=== PATIENT | male | born 1960 | race Caucasian/White ===

== ENCOUNTER → 2020-08-13 | Outpatient (CLI) | payer MEDICARE, BC ==
--- NOTE | 2020-08-13 11:05 | US ---
EXAMINATION TYPE: US abdomen complete DATE OF EXAM: 08/13/2020 COMPARISON: NONE CLINICAL HISTORY: 59-year-old male R10.9 abd pain,R10.13 epigastric pain. TECHNIQUE: Multiple sonographic images of the abdomen are obtained. FINDINGS: EXAM MEASUREMENTS: Liver Length: 10.6 cm Gallbladder Wall: 0.1 cm CBD: 7.5 mm Spleen: 10.2 cm Right Kidney: 10.5 x 5.3 x 5.0 cm Left Kidney: 10.1 x 4.9 x 5.2 cm Pancreas: Obscured by bowel gas Liver: wnl Gallbladder: wnl Evidence for sonographic Lo's sign: no CBD: Mildly dilated. Spleen: wnl Right Kidney: Bridge Saw Operator notes: medial superior shows an area that has a mass like effect. Unable t o determine if this represents a mass or normal parenchyma. Left Kidney: No hydronephrosis or masses seen Upper IVC: wnl Abd Aorta: Mostly obscured by overlying bowel gas, portions visualized wnl At patients area of pain is a midline non-peristalsing around area that has a mass like appearanc e measuring up to 5.4 cm, it appears to be either impressing on to versus arising from the margin of the left liver lobe. IMPRESSION: 1. The trapper bird indicates a prominent area along the upper pole of the right kidney during real-ti me scanning. This is not as well depicted on the provided images. Contrast enhanced CT recommended to exclude underlying mass. 2. Targeted scanning at the midline site of patient's pain shows a rounded 5.4 cm structure either im pressing on to or arising from the margin of the left liver lobe. This should also be assessed by CT. 3. The bile duct is mildly dilated at 7.5 mm. This may be chronic for the patient. Correlate with alk lb phosphatase and bilirubin levels to exclude biliary obstruction.
== END | disposition home or self-care (01) ==
LOC: RADUSWWP 07:26
PROVIDERS: ATTEND Family Medicine
DX: K83.8 Other specified diseases of biliary tract (principal); R93.421 Abnormal radiologic findings on diagnostic imaging of right kidney
CPT/HCPCS: 76700